=== PATIENT | male | born 1950 | race Caucasian/White ===

== ENCOUNTER 2018-02-14 12:41 | Day surgery (SDC) | payer MEDICARE, OTHER ==
[~2018-02-14] VITALS: Ht 172.7 cm; Wt 105.3 kg
[2018-02-14] VITALS (9 sets, daily range): BP systolic 106–130; BP diastolic 68–82; PULSE 70–90; TEMP 97.4–98
[~2018-02-14 12:41] MED LIST: ASPIRIN E.C. 8181 MG PO; CLARITIN 1010 MG/TAB PO; DOXYCYCLINE HY100 MG PO; FISH OIL 1000MG1 CAP PO; FLOMAX 0.40.4 MG/CAP PO; GLUCOPHAGE500 MG/TAB PO; NORCO 325 MG-51 TAB PO; PRINIVIL20 MG PO; PROSCAR 5MG5 MG PO; VITAMIN C500 MG PO; VITAMIN D32000 I1 PO; ZESTRIL 10MG10 MG PO; ZOCOR 20MG20 MG PO
[2018-02-14] MEDS ORDERED: VITAMIN C500 MG PO (13:51)
[2018-02-14] MEDS ORDERED: FLOVENT DI50 MCG/Act IH (13:53)
[2018-02-14] MEDS ORDERED: ZOFRAN8 MG PO (13:59)
[2018-02-14] MEDS ORDERED: ULTRAM 50MG TAB50 MG PO (14:00)
[2018-02-14] MEDS ORDERED: ROXICODONE 55 MG/TAB PO (14:01)
[2018-02-14] MEDS ORDERED: PYRIDIUM 100MG100 MG PO (14:01)
[2018-02-14] MEDS ORDERED: KEYTRUDA25 MG/ML IV (14:04)
[2018-02-15 00:11] VITALS: BP 103/67; PULSE 80; TEMP 98.5
[2018-02-15 03:56] VITALS: BP 116/70; PULSE 92; TEMP 98
[2018-02-15 07:45] VITALS: BP 137/78; PULSE 98; TEMP 97.6
== END 2018-02-15 11:24 | disposition home or self-care (01) ==
LOC: SDCO 12:41 → SURG 22:07 → SDCO 02-15 11:24
DX: C67.1 Malignant neoplasm of dome of bladder (principal); C34.90 Malignant neoplasm of unspecified part of unspecified bronchus or lung; Z85.51 Personal history of malignant neoplasm of bladder; E11.9 Type 2 diabetes mellitus without complications; Z79.84 Long term (current) use of oral hypoglycemic drugs; Z87.891 Personal history of nicotine dependence; Z79.899 Other long term (current) drug therapy; Z79.82 Long term (current) use of aspirin; E78.5 Hyperlipidemia, unspecified; I10 Essential (primary) hypertension
CPT/HCPCS: OP; J0690; J1100; J2405; J2704; J3010; J7120

== ENCOUNTER 2018-06-09 19:43 | Observation (INO) | payer MEDICARE, OTHER ==
[~2018-06-09] VITALS: Ht 172.7 cm; Wt 102.7 kg
[~2018-06-09 19:43] MED LIST changes: +FLOVENT DI50 MCG/Act IH; +KEYTRUDA25 MG/ML IV; +PYRIDIUM 100MG100 MG PO; +ROXICODONE 55 MG/TAB PO; +ULTRAM 50MG TAB50 MG PO; +ZOFRAN8 MG PO
[2018-06-09 20:17] LABS: BASO % 0.3 % (0.0-2.0); GRAN # 9.5 (1.4-6.5); GRAN % 86.4 % (42.2-75.2); HEMOGLOBIN 10.4 g/dl (13.5-18.0); LYMPH # 0.7 (1.2-3.4); LYMPH % 6.7 % (20.0-51.0); MEAN CELL VOLUME 90 fl (80.0-100.0); MEAN CORPUSCULAR HEMOGLOBIN 29 pg (27.0-31.0); MEAN CORPUSCULAR HGB CONC 33 g/dl (33.0-37.0); MEAN PLATELET VOLUME 9.4 fl (7.4-10.4); MONO # 0.7 (0.1-0.6); MONO % 6.2 % (1.7-9.3); PLATELET COUNT 220 K/mm3 (130-400); RED BLOOD COUNT 3.57 M/mm3 (4.20-5.60); REDCELL DISTRIBUTION WIDTH-CV 13.5 % (11.5-14.5)
[2018-06-09 20:44] LABS: COLLECTION METHOD CLEAN CATCH
[2018-06-09 20:53] LABS: MUCOUS Present /lpf; PH 6 (5-8); SQUAMOUS EPITHELIAL 0-2 /hpf; URINE APPEARANCE Cloudy; URINE BACTERIA Moderate /hpf; URINE BILIRUBIN Negative (NEGATIVE); URINE BLOOD 1+ (NEGATIVE); URINE COLOR Yellow; URINE GLUCOSE Negative (NEGATIVE); URINE KETONE Negative (NEGATIVE); URINE LEUKOCYTE ESTERASE 2+ (NEGATIVE); URINE NITRATE Positive (NEGATIVE); URINE PROTEIN(semi-quant) 2+ (NEGATIVE); URINE RBC 20-50 /hpf; URINE UROBILINOGEN Negative (NEGATIVE)
[2018-06-09 21:00] LABS: ALBUMIN 3.6 gm/dL (3.5-5.0); BILIRUBIN,TOTAL 0.5 mg/dL (0.0-1.0); CALCIUM 8.6 mg/dL (8.4-10.2); CREATININE, serum 0.84 mg/dL (0.66-1.25); POTASSIUM 3.5 mmol/L (3.4-5.0); TOTAL PROTEIN 6.6 gm/dL (6.4-8.2)
[2018-06-09 21:18] LABS: C-REACTIVE PROTEIN 22.8 mg/dL (0.0-0.9)
[2018-06-09] MEDS ORDERED: SENNA-LAX8.6 MG PO (22:26)
[2018-06-09] MEDS ORDERED: ATARAX50 MG PO (22:27)
[2018-06-09 23:39] VITALS: BP 142/80; PULSE 111; TEMP 98.4
[2018-06-09 23:44] VITALS: BP 142/80; PULSE 106; TEMP 98.4
[2018-06-10 03:42] VITALS: BP 117/71; PULSE 63; TEMP 97.3
[2018-06-10 07:52] VITALS: BP 121/69; PULSE 86; TEMP 97.6
[2018-06-10 11:26] VITALS: BP 123/77; PULSE 80; TEMP 98
[2018-06-10 15:35] VITALS: BP 140/73; PULSE 92; TEMP 97.7
[2018-06-10 19:35] VITALS: BP 123/74; PULSE 100; TEMP 99.7
[2018-06-11 00:25] VITALS: BP 114/75; PULSE 81; TEMP 99.7
[2018-06-11 04:09] VITALS: BP 131/78; PULSE 80; TEMP 99.4
[2018-06-11 07:52] VITALS: BP 122/77; PULSE 71; TEMP 98.3
[2018-06-11 11:36] VITALS: BP 124/74; PULSE 70; TEMP 98.5
== END 2018-06-11 17:10 | disposition home or self-care (01) ==
LOC: COL.ER 19:43 → SURG 21:50
PROVIDERS: Family Medicine; ADMIT Urology
DX: R10.9 Unspecified abdominal pain (principal); Z90.79 Acquired absence of other genital organ(s); Z90.6 Acquired absence of other parts of urinary tract; Z87.891 Personal history of nicotine dependence; Z79.84 Long term (current) use of oral hypoglycemic drugs; Z79.82 Long term (current) use of aspirin; Z79.51 Long term (current) use of inhaled steroids
CPT/HCPCS: G0378; J0696; J1956; J2405; J7030

== ENCOUNTER 2018-10-10 08:48 | Inpatient (IN) | payer MEDICARE, OTHER ==
[~2018-10-10] VITALS: Ht 172.7 cm; Wt 99.6 kg
[~2018-10-10 08:48] MED LIST changes: +ATARAX50 MG PO; +SENNA-LAX8.6 MG PO
[2018-10-10 09:14] LABS: BASO # 0.1 (0.0-0.2); BASO % 0.5 % (0.0-2.0); EOS # 0.3 (0.0-0.7); EOS % 3.3 % (0-4.0); GRAN # 7.9 (1.4-6.5); GRAN % 75.2 % (42.2-75.2); HEMATOCRIT 38.5 % (42.0-52.0); HEMOGLOBIN 12.3 g/dl (13.5-18.0); LYMPH # 1.3 (1.2-3.4); LYMPH % 12.4 % (20.0-51.0); MEAN CELL VOLUME 87 fl (80.0-100.0); MEAN CORPUSCULAR HEMOGLOBIN 28 pg (27.0-31.0); MEAN CORPUSCULAR HGB CONC 32 g/dl (33.0-37.0); MEAN PLATELET VOLUME 8.6 fl (7.4-10.4); MONO # 0.8 (0.1-0.6); PLATELET COUNT 333 K/mm3 (130-400); RED BLOOD COUNT 4.45 M/mm3 (4.20-5.60); REDCELL DISTRIBUTION WIDTH-CV 15.2 % (11.5-14.5)
[2018-10-10 09:25] LABS: BILIRUBIN,TOTAL 0.6 mg/dL (0.0-1.0); CALCIUM 9.3 mg/dL (8.4-10.2); CREATININE, serum 0.77 (0.66-1.25); MAGNESIUM 1.9 mg/dL (1.6-2.3); PHOSPHOROUS 3.5 mg/dL (2.5-4.5); POTASSIUM 4.3 mmol/L (3.4-5.0); TOTAL PROTEIN 7.6 gm/dL (6.4-8.2)
[2018-10-10 09:30] LABS: INR 1.1 (0.8-3.0); PROTHROMBIN TIME 13.3 SECONDS (9.7-12.8)
[2018-10-10 09:33] LABS: PARTIAL THROMBOPLASTIN TIME 29.1 SECONDS (26.0-37.0)
[2018-10-10 09:36] LABS: TROPONIN-I 0.034 ng/mL (0.000-0.035)
[2018-10-10] MEDS ORDERED: FLONASEALLERGY NS (09:36)
[2018-10-10 10:14] LABS: COLLECTION METHOD CLEAN CATCH
[2018-10-10 10:35] LABS: MUCOUS Present /lpf; PH 6 (5-8); SQUAMOUS EPITHELIAL 0-2 /hpf; URINE APPEARANCE Cloudy; URINE BACTERIA None Seen /hpf; URINE BILIRUBIN Negative (NEGATIVE); URINE BLOOD 1+ (NEGATIVE); URINE COLOR Yellow; URINE GLUCOSE Negative (NEGATIVE); URINE KETONE Negative (NEGATIVE); URINE LEUKOCYTE ESTERASE 1+ (NEGATIVE); URINE NITRATE Negative (NEGATIVE); URINE PROTEIN(semi-quant) 1+ (NEGATIVE); URINE UROBILINOGEN Negative (NEGATIVE)
--- NOTE | 2018-10-10 14:00 | NUR ---
PT ADMITTED TO FLOOR AT THIS TIME. FAMILY AT BEDSIDE. PT HAS NOTED LEFT SIDED FACAL DROOPINESS, SLURRED SPEACH ALTHOUGH NO LT SIDED WEAKNESS TO EXTREM. THIS NURSE NOTIFING SPEECH THEARAPY TO PERFORM SWALLOW STUDY PER ORDERS.
[2018-10-10 16:43] VITALS: BP 138/83; PULSE 74
--- NOTE | 2018-10-10 19:00 | NUR ---
PT HAS HAD UNREMARKABLE NEURO CHANGES AND STROKE SCALE THIS SHIFT, HAS REMAINED THE SAME. IV FLUIDS INFUSING. SPEECH THEARAPY PUT IN DIET ORDERS PER SWALLOW STUDY. VITALS HAVE BEEN WNL. NEW MEDICATION ORDERS HAVE BEEN DISCUSSED WITH PT FOR THIS. PT AND FAMILY QUESTIONS AND CONSERNS VOICED AND DISCUSSED WITH THEM AND THEY HAVE ARRISED.
[2018-10-10 19:55] VITALS: BP 133/75; PULSE 76; TEMP 98.2
[2018-10-10 23:35] VITALS: BP 136/80; PULSE 72; TEMP 98.2; TEMP 98.3
[2018-10-11 03:06] VITALS: BP 121/79; PULSE 74; TEMP 98.2
[2018-10-11 04:11] VITALS: BP 121/79; PULSE 74; TEMP 98.2
--- NOTE | 2018-10-11 04:14 | NUR ---
Patient awake, in bed. IV flushed with NS, positional. IV tubing taped, IV patent, blood return noted. Neuro check negative, but still shwoing signs of facial paralysis when attempting to smile. Denies pain. Denies further needs at this time. Will continue to assess.
[2018-10-11 05:31] LABS: BASO % 0.3 % (0.0-2.0); EOS # 0.4 (0.0-0.7); EOS % 3.8 % (0-4.0); GRAN # 8.1 (1.4-6.5); GRAN % 77.9 % (42.2-75.2); HEMOGLOBIN 11.6 g/dl (13.5-18.0); LYMPH # 0.9 (1.2-3.4); MEAN CELL VOLUME 85 fl (80.0-100.0); MEAN CORPUSCULAR HEMOGLOBIN 28 pg (27.0-31.0); MEAN CORPUSCULAR HGB CONC 33 g/dl (33.0-37.0); MEAN PLATELET VOLUME 8.5 fl (7.4-10.4); MONO # 0.9 (0.1-0.6); MONO % 8.2 % (1.7-9.3); PLATELET COUNT 313 K/mm3 (130-400); RED BLOOD COUNT 4.17 M/mm3 (4.20-5.60); REDCELL DISTRIBUTION WIDTH-CV 15.2 % (11.5-14.5)
[2018-10-11 05:35] LABS: HEMATOCRIT 35.3 % (42.0-52.0)
[2018-10-11 05:54] LABS: CALCIUM 8.7 mg/dL (8.4-10.2); CHOLESTEROL RISK RATIO 4.8; CREATININE, serum 0.7 (0.66-1.25); POTASSIUM 3.7 mmol/L (3.4-5.0)
--- NOTE | 2018-10-11 07:41 | NUR ---
Reeived report from MIRIAM Gutierrez.
[2018-10-11 08:57] VITALS: BP 132/77; PULSE 66
--- NOTE | 2018-10-11 10:21 | NUR ---
Initial visit; Patient thanked Pearl Stringer for looking in on him and offering God's blessings and keeping him in Pearl Stringer's prayers.
--- NOTE | 2018-10-11 10:35 | NUR ---
Pt in restroom upon entry, no C/O pain at this time, shift assessments complete, left Pt call light in reach, bed in lowest position.
--- NOTE | 2018-10-11 11:48 | NUR ---
ANTOINE met with the patient to discuss discharge plan. The patient lives in [place] with his (Bernice), their daughter, and his [id number]. He reports independence with ADLs and does not have any DME. The patient's PCP is Dr. Mao Salgado and he receives his medications through the [facility] or from [facility] for long-term medicine. The patient does not have advanced directives, but he was interested in obtaining a form for DPOA-HC. ANTOINE provided. The patient states that he would like to receive outpatient services for speech therapy at the [facility]. He states that he can set up the appointments. ANTOINE to inform the patient's nurse practitioner, Kirsty, for a script. The patient plans to return back home with his family upon discharge. No additional needs at this time.
[2018-10-11 12:27] VITALS: BP 126/69; BP 141/79; PULSE 68; PULSE 75; TEMP 98; TEMP 98.1
[2018-10-11 15:27] VITALS: BP 133/77; PULSE 77
[2018-10-11 17:04] LABS: FOLATE (FOLIC ACID) 14.4 ng/mL (7.0-31.4)
--- NOTE | 2018-10-11 19:48 | NUR ---
Pt has been independent in the room during the day, went down to imaging early this afternoon and returned to floor, He has had no C/O pain during the shift, strke assessments show little residual in his extremities but he still exibits some facial residual.
--- NOTE | 2018-10-11 20:30 | NUR ---
Initial shift assessment done- denies pain- took a shower tonight- states that made him feel better, tele on, IV fluids of NS at 125cc/hr, continues with left side facila droop-no other neuro deficits
[2018-10-11 23:13] VITALS: BP 123/71; PULSE 93; TEMP 99.5
[2018-10-12 05:00] VITALS: BP 109/57; PULSE 73; TEMP 98
--- NOTE | 2018-10-12 05:47 | NUR ---
Quiet night- has been sleeping well, no requests
[2018-10-12 08:28] VITALS: BP 116/71; PULSE 73; TEMP 98
--- NOTE | 2018-10-12 11:04 | NUR ---
Assessment complete.patient awake,sitting up in bed.a/ox3.denies pain or discomfort at this time.speech is slurred r/t to CVA.gait is stable.no weakness noted.all meds given.ivf infusing.patient denies any other needs at this time.call light in reach
[2018-10-12] MEDS ORDERED: LIPITOR 40MG TA40 MG PO (11:08)
[2018-10-12] MEDS ORDERED: PLAVIX 75MG TAB75 MG PO (11:08)
[2018-10-12 11:52] VITALS: BP 137/95; PULSE 72; TEMP 97.9
--- NOTE | 2018-10-12 13:18 | NUR ---
ALL DISCHARGE INSTRUCTIONS REVIEWED.SCRIPTS GIVEN TO PT.IV AND TELEMETRY DISCONTINUED.PATIENT VOICED UNDERSTANDING. ROUNDED ON PT.GAIT STEADY.PT DENIES FURTHER NEEDS AT THIS TIME.CALL LIGHT IN REACH
--- NOTE | 2018-10-12 13:20 | NUR ---
PT ESCORTED OUT BY STAFF.
== END 2018-10-12 13:23 | disposition home or self-care (01) | DRG 65 ==
LOC: COL.ER 08:48 → MEDICAL 10:37
PROVIDERS: Emergency Medicine; Physician Assistant; ADMIT Internal Medicine
DX: I63.9 Cerebral infarction, unspecified (principal); C34.90 Malignant neoplasm of unspecified part of unspecified bronchus or lung; G81.94 Hemiplegia, unspecified affecting left nondominant side; E11.9 Type 2 diabetes mellitus without complications; I10 Essential (primary) hypertension; T50.Z15A Adverse effect of immunoglobulin, initial encounter; R21 Rash and other nonspecific skin eruption; I69.328 Other speech and language deficits following cerebral infarction; Z85.46 Personal history of malignant neoplasm of prostate; Z85.51 Personal history of malignant neoplasm of bladder; Z87.891 Personal history of nicotine dependence; Z79.01 Long term (current) use of anticoagulants; Z79.02 Long term (current) use of antithrombotics/antiplatelets; Z79.82 Long term (current) use of aspirin; Y92.009 Unspecified place in unspecified non-institutional (private) residence as the place of occurrence of the external cause
CPT/HCPCS: 99222-AI; 99232-AI; 99239; A9585; J1650; J7030; Q9967

== ENCOUNTER → 2019-03-02 | Outpatient (CLI) | payer MEDICARE, OTHER ==
[~2019-03-02] VITALS: Ht 172.7 cm; Wt 83.3 kg
[~2019-03-02] MED LIST changes: +FLONASEALLERGY NS; +LIPITOR 40MG TA40 MG PO; +PLAVIX 75MG TAB75 MG PO; +TYLENOL 500MG500 MG PO
[2019-03-02 10:39] VITALS: BP 135/82; TEMP 98.5
[2019-03-02 11:28] VITALS: PULSE 105
== END ==
LOC: EUO 10:18 → COL.ER 10:18
DX: Z23 Encounter for immunization (principal); C79.11 Secondary malignant neoplasm of bladder; Z92.21 Personal history of antineoplastic chemotherapy; Z98.890 Other specified postprocedural states

== ENCOUNTER 2019-03-06 17:05 | Outpatient (RCR) | payer MEDICARE, OTHER ==
[2019-03-06 17:15] VITALS: BP 137/76; PULSE 131; TEMP 98.1
== END 2019-06-04 | disposition still patient (30) ==
LOC: COL.ER
DX: Z20.3 Contact with and (suspected) exposure to rabies (principal); Z23 Encounter for immunization

== ENCOUNTER 2019-03-13 17:44 | Outpatient (RCR) | payer MEDICARE, OTHER ==
[2019-03-13 18:11] VITALS: BP 138/80; PULSE 120; TEMP 97.3
== END 2019-06-11 | disposition still patient (30) ==
LOC: COL.ER
DX: Z20.3 Contact with and (suspected) exposure to rabies (principal); Z23 Encounter for immunization